=== PATIENT | male | born 1955 ===

== ENCOUNTER 2017-08-13 01:18 | Observation (INO) | payer SELFPAY ==
[2017-08-13] VITALS (10 sets, daily range): BP systolic 92–155; BP diastolic 57–93
[~2017-08-13] VITALS: Ht 167.6 cm; Wt 88.1 kg
[~2017-08-13 01:18] MED LIST: ASP81TEC PO; FINA5TAB PO; GLMP4T PO; HYDR-3720 PO; LISI40TA PO; METF-380 PO; METO25TA2 PO; OMG1KC PO; SITA1TAB6 PO
[2017-08-13] MEDS ORDERED: NS IV 1000 ML 1,000 ML IV ONE (01:23)
[2017-08-13] MEDS ORDERED: ONDANSETRON 4 MG/2 ML (SDV) Z0FRAN IVP ONE (01:30)
[2017-08-13 02:05] LABS: BASOPHILS % (AUTO) 0 % (0-10); EOSINOPHILS % (AUTO) 0 % (0-10); HEMATOCRIT 43 % (40-54); HEMOGLOBIN 14.6 G/DL (13.3-17.7); LYMPHOCYTES # (AUTO) 1.2 X 10^3 (1.0-4.0); LYMPHOCYTES % (AUTO) 23 % (12-44); MEAN CORPUSCULAR HEMOGLOBIN 29 PG (25-34); MEAN CORPUSCULAR HGB CONC 34 G/DL (32-36); MEAN CORPUSCULAR VOLUME 86 FL (80-99); MEAN PLATELET VOLUME 11.3 FL (7.4-10.4); MONOCYTES # (AUTO) 0.4 X 10^3 (0.0-1.0); MONOCYTES % (AUTO) 7 % (0-12); NEUTROPHILS # (AUTO) 3.6 X 10^3 (1.8-7.8); NEUTROPHILS % (AUTO) 69 % (42-75); PLATELET COUNT 166 10^3/uL (130-400); RED BLOOD COUNT 5.03 10^6/uL (4.35-5.85); RED CELL DISTRIBUTION WIDTH 14.7 % (10.0-14.5); WHITE BLOOD COUNT 5.2 10^3/uL (4.3-11.0)
[2017-08-13 02:25] LABS: ALANINE AMINOTRANSFERASE 78 U/L (0-55); ALBUMIN 4.6 GM/DL (3.2-4.5); ALKALINE PHOSPHATASE 85 U/L (40-136); BILIRUBIN,TOTAL 0.4 MG/DL (0.1-1.0); BUN/CREATININE RATIO 11; CALCIUM 8.7 MG/DL (8.5-10.1); CARBON DIOXIDE 20 MMOL/L (21-32); CHLORIDE 101 MMOL/L (98-107); GFR ESTIMATED > 60; GLUCOSE 294 MG/DL (70-105); SODIUM 136 MMOL/L (135-145); TOTAL PROTEIN 7.8 GM/DL (6.4-8.2)
[2017-08-13 03:13] LABS: BILIRUBIN,URINE NEGATIVE (NEGATIVE); CLARITY,URINE CLEAR; COLOR,URINE YELLOW; GLUCOSE, URINE (UA) 4+ (NEGATIVE); KETONES,URINE 1+ (NEGATIVE); LEUKOCYTE ESTERASE ,URINE NEGATIVE (NEGATIVE); NITRITE,URINE NEGATIVE (NEGATIVE); PH,URINE 6.5 (5-9); PROTEIN,URINE 1+ (NEGATIVE); UROBILINOGEN,URINE NORMAL (NORMAL)
[2017-08-13 03:21] LABS: AMPHETAMINE SCREEN, URINE NEGATIVE (NEGATIVE); BARBITURATE SCREEN URINE NEGATIVE (NEGATIVE); BENZODIAZEPINES SCREEN URINE NEGATIVE (NEGATIVE); CANNABINOID SCREEN, URINE NEGATIVE (NEGATIVE); COCAINE SCREEN URINE NEGATIVE (NEGATIVE); METHADONE STAT NEGATIVE (NEGATIVE); METHAMPHETAMINE SCREEN URINE S NEGATIVE (NEGATIVE); OPIATE SCREEN URINE NEGATIVE (NEGATIVE); OXYCODONE STAT NEGATIVE (NEGATIVE); PROPOXYPHENE STAT NEGATIVE (NEGATIVE); TRICYCLIC ANTIDEPRESSANTS SCRE NEGATIVE (NEGATIVE)
[2017-08-13] MEDS ORDERED: TETANUS,DIPTH,PERTUSS P/F (BOOSTRIX) 0.5 ML VIAL IM ONE (03:30)
[2017-08-13 03:33] LABS: BACTERIA,URINE NEGATIVE /HPF; RBC,URINE RARE /HPF; SQUAMOUS EPITHELIAL CELL,UR RARE /HPF
[2017-08-13] MEDS ORDERED: NS IV 1000 ML 1,000 ML ONE (04:33)
--- NOTE | 2017-08-13 04:52 | ED Psychosocial ---
General Chief Complaint: Substance Abuse Stated Complaint: ALCOHOL INTOXICATION,HYPOXIA,FALL SAME LEVEL Nursing Triage Note: PT TO ED 7 PER EMS FOR C/O INTOXICATION. PER EMS, [facility] [place], [facility] WAS ON SCENE AND TOLD PT EITHER GO TO THE HOSPITAL W/ EMS OR GO TO [facility]. PT DECIDED TO COME TO THIS FACILITY PER EMS BUT REFUSED ANY TREATMENT OR INTERVENTIONS PER EMS. PT PRESENTLY WILL NOT ANSWER ANY QUESTIONS ASKED BY STAFF Source: patient, educational sign language interpreter (Via language line) Exam Limitations: language barrier History of Present Illness Date Seen by Provider: Aug 13, 2017 Time Seen by Provider: 01:20 Initial Comments This 62-year-old man is brought to the emergency room via EMS after being found is a parking lot of a local establishment trying to get in the car. Patient would not communicate with EMS. He vomited multiple times. He did agree to go to the emergency room. On arrival he is disoriented and obviously intoxicated smelling heavily of alcohol. He denies any pain or injury but he has abrasions on the right elbow area and the left forearm. EMS reports he vomited multiple times. Patient was refusing interventions by EMS. Allergies and Home Medications Allergies Coded Allergies: Hydrochlorothiazide (Unverified Allergy, Unknown, 04/07/10) Terazosin (Unverified Allergy, Unknown, 04/07/10) Home Medications Aspirin 81 Mg Tabec, 81 MG PO DAILY, (Reported) Finasteride 5 Mg Tablet, 5 MG PO DAILY, (Reported) Glimepiride 4 Mg Tablet, 0.5 TAB PO DAILY, (Reported) Hydrocodone Bit/Acetaminophen 1 Ea Tab, 1-2 EA PO Q4-6HR PRN for PAIN FOR PAIN Prescribed by: PALOMA SERRATO on 06/08/13 2332 Lisinopril 40 Mg Tablet, 40 MG PO DAILY, (Reported) Metformin Hcl 1,000 Mg Tablet, 1 EACH PO BID WITH MEALS, (Reported) Do not take until Apr. 2 blood work results Metoprolol Tartrate 25 Mg Tablet, 25 MG PO BID, (Reported) [place] 3 Polyunsat Fatty Acids 1,000 Mg Cap, 1,000 MG PO BID, (Reported) Sitagliptin Phos/Metformin Hcl 1 Each Tablet, 0.5 EACH PO DAILY, (Reported) Do not resume taking until after apr. 2 blood work results Patient Home Medication List Home Medication List Reviewed: Yes Constitutional: see HPI EENTM: no symptoms reported Respiratory: no symptoms reported Cardiovascular: no symptoms reported Gastrointestinal: see HPI Genitourinary: no symptoms reported Musculoskeletal: no symptoms reported Skin: see HPI, other (abrasions on upper extremities) Psychiatric/Neurological: See HPI Past Idgfavi-Vdlkbf-Zocdir Hx Patient Social History Alcohol Use: Occasionally Uses Recreational Drug Use: No Smoking Status: Never a Smoker Recent Foreign Travel: No Contact w/Someone Who Travel: No Recent Infectious Disease Expo: No Physical Abuse: No Sexual Abuse: No Mistreated: No Fear: No Past Medical History Surgeries: No (denies/some communication barriers) Respiratory: No Cardiac: Yes Hypertension Neurological: No Genitourinary: No Gastrointestinal: No Musculoskeletal: No Endocrine: Yes Diabetes, Non-Insulin dep HEENT: No Cancer: No Psychosocial: No Nursing Suicide Risk Score: 0 Integumentary: No Blood Disorders: No Physical Exam Vital Signs Vital Signs - First Documented 08/13/17 01:19 Temp 95.4 Pulse 87 Resp 16 B/P (MAP) 151/104 (120) Pulse Ox 93 O2 Delivery Room Air Capillary Refill : Less Than 3 Seconds General Appearance: WD/WN, other (Intoxicated) HEENT: PERRL/EOMI, pharynx normal, other (contusion on tip of tongue) Neck: non-tender, supple, normal inspection Respiratory: lungs clear, normal breath sounds, no respiratory distress, no accessory muscle use Cardiovascular: regular rate, rhythm, no edema, no murmur Gastrointestinal: normal bowel sounds, non tender, soft Extremities: normal inspection, no pedal edema 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, no motor/sensory deficits, alert, normal mood/affect, oriented x 3 Appearance/Memory: disheveled, impaired recent memory Behavior/Eye Contact: avoids eye contact, uncooperative Skin: normal color, warm/dry, other (abrasions on right elbow and left forearm) Progress/Results/Core Measures Lab Results Laboratory Tests Test 08/13/17 01:54 08/13/17 03:04 08/13/17 03:47 Range/Units White Blood Count 5.2 4.3-11.0 10^3/uL Red Blood Count 5.03 4.35-5.85 10^6/uL Hemoglobin 14.6 13.3-17.7 G/DL Hematocrit 43 40-54 % Mean Corpuscular Volume 86 80-99 FL Mean Corpuscular Hemoglobin 29 25-34 PG Mean Corpuscular Hemoglobin Concent 34 32-36 G/DL Red Cell Distribution Width 14.7 H 10.0-14.5 % Platelet Count 166 130-400 10^3/uL Mean Platelet Volume 11.3 H 7.4-10.4 FL Neutrophils (%) (Auto) 69 42-75 % Lymphocytes (%) (Auto) 23 12-44 % Monocytes (%) (Auto) 7 0-12 % Eosinophils (%) (Auto) 0 0-10 % Basophils (%) (Auto) 0 0-10 % Neutrophils # (Auto) 3.6 1.8-7.8 X 10^3 Lymphocytes # (Auto) 1.2 1.0-4.0 X 10^3 Monocytes # (Auto) 0.4 0.0-1.0 X 10^3 Eosinophils # (Auto) 0.0 0.0-0.3 10^3/uL Basophils # (Auto) 0.0 0.0-0.1 10^3/uL Sodium Level 136 135-145 MMOL/L Potassium Level 4.0 3.6-5.0 MMOL/L Chloride Level 101 98-107 MMOL/L Carbon Dioxide Level 20 L 21-32 MMOL/L Anion Gap 15 H 5-14 MMOL/L Blood Urea Nitrogen 9 7-18 MG/DL Creatinine 0.80 0.60-1.30 MG/DL Estimat Glomerular Filtration Rate > 60 BUN/Creatinine Ratio 11 Glucose Level 294 H 70-105 MG/DL Calcium Level 8.7 8.5-10.1 MG/DL Magnesium Level 2.0 1.8-2.4 MG/DL Total Bilirubin 0.4 0.1-1.0 MG/DL Aspartate Amino Transf (AST/SGOT) 39 H 5-34 U/L Alanine Aminotransferase (ALT/SGPT) 78 H 0-55 U/L Alkaline Phosphatase 85 40-136 U/L Total Protein 7.8 6.4-8.2 GM/DL Albumin 4.6 H 3.2-4.5 GM/DL Serum Alcohol 255 H <10 MG/DL Urine Color YELLOW Urine Clarity CLEAR Urine pH 6.5 5-9 Urine Specific [place] 1.015 L 1.016-1.022 Urine Protein 1+ H NEGATIVE Urine Glucose (UA) 4+ H NEGATIVE Urine Ketones 1+ H NEGATIVE Urine Nitrite NEGATIVE NEGATIVE Urine Bilirubin NEGATIVE NEGATIVE Urine Urobilinogen NORMAL NORMAL MG/DL Urine Leukocyte Esterase NEGATIVE NEGATIVE Urine RBC (Auto) 1+ H NEGATIVE Urine RBC RARE /HPF Urine WBC NONE /HPF Urine Squamous Epithelial Cells RARE /HPF Urine Crystals NONE /LPF Urine Bacteria NEGATIVE /HPF Urine Casts NONE /LPF Urine Mucus NEGATIVE /LPF Urine Culture Indicated NO Urine Opiates Screen NEGATIVE NEGATIVE Urine Oxycodone Screen NEGATIVE NEGATIVE Urine Methadone Screen NEGATIVE NEGATIVE Urine Propoxyphene Screen NEGATIVE NEGATIVE Urine Barbiturates Screen NEGATIVE NEGATIVE Ur Tricyclic Antidepressants Screen NEGATIVE NEGATIVE Urine Phencyclidine Screen NEGATIVE NEGATIVE Urine Amphetamines Screen NEGATIVE NEGATIVE Urine Methamphetamines Screen NEGATIVE NEGATIVE Urine Benzodiazepines Screen NEGATIVE NEGATIVE Urine Cocaine Screen NEGATIVE NEGATIVE Urine Cannabinoids Screen NEGATIVE NEGATIVE Glucometer 226 H 70-110 MG/DL My Orders Orders - MANI MANZO MD Alcohol (08/13/17 01:23) Cbc With Automated Diff (08/13/17 01:23) Comprehensive Metabolic Panel (08/13/17 01:23) Drug Screen Stat (Urine) (08/13/17 01:23) Magnesium (08/13/17 01:23) Ua Culture If Indicated (08/13/17 01:23) Saline Lock/Iv-Start (08/13/17 01:23) Ns Iv 1000 Ml (Sodium Chloride 0.9%) (08/13/17 01:23) Ondansetron Injection (Zofran Injectio (08/13/17 01:30) Accucheck Stat ONCE (08/13/17 01:26) O2 (08/13/17 01:52) Ct Head/Cervical Spine Wo (08/13/17 01:53) Dipht,Pertuss(Acell),Tet Adult (Boostrix (08/13/17 03:30) Chest 1 View, Ap/Pa Only (08/13/17 03:39) Hand, Left, 3 Views (08/13/17 03:46) Medications Given in ED Current Medications Medications Dose Ordered Sig/Beatrice Route Start Time Stop Time Status Last Admin Dose Admin Diphtheria/ Tetanus/Acell Pertussis 0.5 ml ONCE ONCE IM 08/13/17 03:30 08/13/17 03:31 DC 08/13/17 04:17 0.5 ML Ondansetron HCl 8 mg ONCE ONCE IVP 08/13/17 01:30 08/13/17 01:31 DC 08/13/17 02:04 8 MG Sodium Chloride 1,000 ml @ 0 mls/hr Q0M ONCE IV 08/13/17 01:23 08/13/17 01:27 DC 08/13/17 02:04 1,000 MLS/HR Vital Signs/I&O Vital Sign - Last 12Hours 08/13/17 08/13/17 08/13/17 01:19 04:30 04:32 Temp 95.4 97.6 Pulse 87 101 100 Resp 16 16 B/P (MAP) 151/104 (120) 155/93 (113) Pulse Ox 93 97 O2 Delivery Room Air Room Air Blood Pressure Mean: 113 Finger Stick Blood Glucose: 226 Blood Glucose Action Taken: DR HIRSCH Progress Note : Progress Note Patient initially refused treatment. He vomited a large quantity of emesis. Patient requested to go home but could not contact any family and he eventually became unresponsive. CT of the head and cervical spine was obtained and c- collar was applied. Supplemental oxygen was applied due to hypoxia. Patient was given a liter of IV fluids. Patient repeatedly tore out and removed his c- collar. It was left off eventually due to noncompliance. C-spine was cleared by CT report a short time later. Patient repeatedly removed his nasal cannula and oxygen saturations would drop as low as the 60s when he fell sleep. We had hoped to send the patient home but cannot send him home with hypoxia. I suspect patient has some underlying sleep apnea exacerbated by alcohol intoxication. I suggested admission until he completely clears the alcohol. Dr. Durant agrees to admission. Chest x-ray showed no acute abnormalities. Diagonstic Imaging: CT Plain Films/CT/US/NM/MRI: c-spine, head Comments CT head and cervical spine viewed by me and stat rad report reviewed. No acute injuries identified. Diagonstic Imaging: Xray Plain Films/CT/US/NM/MRI: chest Comments Chest x-ray viewed by me. Report not yet available. Nodular density in the right lower lung. Otherwise no acute abnormalities appreciated. Diagonstic Imaging: Xray Plain Films/CT/US/NM/MRI: hand Comments X-ray of the left hand viewed by me. Report not yet available. No acute abnormalities appreciated. Departure Communication (Admissions) Time/Spoke to Admitting Phy: 03:40 Dr. Durant Time/Spoke to Consulting Phy: 03:50 Dr. Dai Impression Primary Impression: Alcohol intoxication Qualified Codes: F10.920 - Alcohol use, unspecified with intoxication, uncomplicated Additional Impressions: Hypoxia Fall on same level Qualified Codes: W18.30XA - Fall on same level, unspecified, initial encounter Hand contusion Qualified Codes: S60.222A - Contusion of left hand, initial encounter Abrasion Uses Syrian as primary spoken language Disposition: ADMITTED INPATIENT Condition: Improved Admissions Decision to Admit Reason: Admit from ER (General) Decision to Admit/Date: Aug 13, 2017 Time/Decision to Admit Time: 03:40 Departure-Patient Inst. Referrals: NO,LOCAL PHYSICIAN (PCP/Family) Primary Care Physician Patient Instructions: ALCOHOL AND SUBSTANCE ABUSE MANI MANZO MD Aug 13, 2017 04:52
[2017-08-13] MEDS ORDERED: NS IV 1000 ML 1,000 ML IV SCH (05:00)
[2017-08-13] MEDS ORDERED: ONDANSETRON 4 MG/2 ML (SDV) Z0FRAN IV PRN (05:15)
--- NOTE | 2017-08-13 05:49 | Diagnostic Imaging Report ---
INDICATION: Fall COMPARISON: 04/07/2010 FINDINGS: Single frontal view of the chest demonstrates normal heart size and pulmonary vascularity. The lungs show low inspiratory volumes, but are otherwise clear. Calcified granuloma is noted within the right lung base. No large pleural effusion or pneumothorax is seen. The visualized osseous structures show no acute abnormalities. IMPRESSION: 1. No acute cardiopulmonary process. Dictated by: Dictated on workstation # [id number]
--- NOTE | 2017-08-13 05:50 | Diagnostic Imaging Report ---
INDICATION: Fall COMPARISON: None. FINDINGS: 3 views of the left hand show no fractures, dislocations, or other acute bony abnormalities identified. Joint spaces are well maintained throughout. The soft tissues appear unremarkable. No radiopaque foreign bodies are identified. IMPRESSION: No acute fractures or dislocations of the left hand. Dictated by: Dictated on workstation # [id number]
--- NOTE | 2017-08-13 06:33 | Diagnostic Imaging Report ---
PROCEDURE: CT head and CT cervical spine without contrast. TECHNIQUE: Multiple contiguous axial images were obtained through the brain and cervical spine without the use of intravenous contrast. Sagittal and coronal reformations through the cervical spine were then performed. INDICATION: Fall. COMPARISON: None FINDINGS: CT head: Ventricles and cortical sulci are age-appropriate. There is no midline shift or mass-effect. No acute intra-axial hemorrhage is seen. There are no abnormal areas of increased or decreased density to suggest acute hemorrhage or edema. No extra-axial masses or collections are present. The bony calvarium is intact. The visualized paranasal sinuses are unremarkable. The mastoid air cells are clear. CT cervical spine: Evaluation of the static alignment demonstrates slight grade 1 retrolisthesis at the C4-C5 level. Otherwise, static alignment is maintained. There is no evidence of jumped facets. Vertebral body heights are maintained. There is no evidence of acute fracture. No bony fragments are seen within the spinal canal. There are mild multilevel degenerative changes consisting of intervertebral disc height loss with anterior and posterior disc bulges and multilevel facet arthropathy. These changes are also greatest at the C4-C5 level. Pre-and paravertebral soft tissue structures are unremarkable. Included portions of the lung apices are clear. IMPRESSION: 1. No acute intracranial abnormality. No CT evidence of mass, acute infarct or intracranial hemorrhage. 2. No CT evidence of acute fracture or dislocation of the cervical spine. 3. Multilevel degenerative changes of the cervical spine, greatest at C4-C5 level. Dictated by: Dictated on workstation # [id number]
[2017-08-13] MEDS ORDERED: LISI40TA PO (09:24)
[2017-08-13] MEDS ORDERED: OMG1KC PO (09:24)
[2017-08-13] MEDS ORDERED: METO-370 PO (09:54)
[2017-08-13] MEDS ORDERED: LOVA40TA2 PO (09:54)
[2017-08-13] MEDS ORDERED: PIOG30TA38 PO (09:54)
[2017-08-13] MEDS ORDERED: SITA1TAB6 PO (09:54)
[2017-08-13] MEDS ORDERED: CITA20TA12 PO (09:54)
[2017-08-13] MEDS ORDERED: TAMS0.4C98 PO (09:54)
--- NOTE | 2017-08-13 10:26 | Discharge Instructions ---
Discharge Inst-[facility] Discharge Medications Continued Medications: Citalopram Hydrobromide (Celexa) 20 Mg Tablet 40 MG PO DAILY, TAB TAKES 2 (20MG) TABLETS Lisinopril (Lisinopril) 40 Mg Tablet 40 MG PO DAILY, TAB Lovastatin (Lovastatin) 40 Mg Tablet 40 MG PO DAILY, TAB Metoprolol Succinate (Metoprolol Succinate) 50 Mg Tab.er.24h 50 MG PO DAILY, TAB [place] 3 Polyunsat Fatty Acids (Fish Oil 1,000 mg Capsule) 1,000 Mg Cap 1000 MG PO BID, CAP Pioglitazone HCl (Actos) 30 Mg Tablet 30 MG PO DAILY, TAB Sitagliptin Phos/Metformin HCl (Janumet 50-1,000 mg Tablet) 1 Each Tablet 1 TAB PO BID, TAB Tamsulosin HCl (Flomax) 0.4 Mg Cap 0.4 MG PO DAILY, CAP Patient Instructions Goal/Follow Up Appt: ERICA Wade APRN at [facility] 08/19/17 11:40am Activity & Diet Discharge Diet: ADA Diet Orders-Post D/C & Referrals Pneu Vac Indicated: Yes SHIRLEY BROWN DO Aug 13, 2017 10:13
--- NOTE | 2017-08-13 10:27 | Short Stay Summary ---
History of Present Illness History of Present Illness Reason for visit/HPI This is a 62 yo male who was admitted for alcohol intoxication. Pt remembers drinking last night but does not remember coming to the hospital. Apparently he was brought to the hospital after trying to get into a car. He vomited several times. At this time he is alert and oriented. He states he does not have any interest in alcohol treatment. Date of Admission Aug 13, 2017 at 03:51 Date of Discharge August 13, 2017 Time Seen by Provider: 10:10 Attending Physician Deborah Brown DO Admitting Physician Tawny,Local Physician Consult Allergies and Home Medications Allergies Coded Allergies: hydrochlorothiazide (Unverified Allergy, Unknown, 04/07/10) terazosin (Unverified Allergy, Unknown, 04/07/10) Home Medications Citalopram Hydrobromide 20 Mg Tablet, 40 MG PO DAILY, (Reported) TAKES 2 (20MG) TABLETS Lisinopril 40 Mg Tablet, 40 MG PO DAILY, (Reported) Lovastatin 40 Mg Tablet, 40 MG PO DAILY, (Reported) Metoprolol Succinate 50 Mg Tab.er.24h, 50 MG PO DAILY, (Reported) [place] 3 Polyunsat Fatty Acids 1,000 Mg Cap, 1,000 MG PO BID, (Reported) Pioglitazone HCl 30 Mg Tablet, 30 MG PO DAILY, (Reported) Sitagliptin Phos/Metformin HCl 1 Each Tablet, 1 TAB PO BID, (Reported) Tamsulosin HCl 0.4 Mg Cap, 0.4 MG PO DAILY, (Reported) Patient Home Medication List Home Medication List Reviewed: Yes Past Qjpdldi-Anmcgz-[place] Hx Patient Social History Alcohol Use: Occasionally Uses Recreational Drug Use: No Smoking Status: Never a Smoker Physical Abuse Screen: No Sexual Abuse: No Recent Foreign Travel: No Contact w/other who traveled: No Recent Infectious Disease Expo: No Surgeries No (denies/some communication barriers) Respiratory No Cardiovascular Yes Hypertension Neurological No Genitourinary No Gastrointestinal No Musculoskeletal No Endocrine History of Endocrine Disorders: Yes Endocrine Disorders: Diabetes, Non-Insulin dep HEENT History of HEENT Disorders: No Cancer No Psychosocial History of Psychiatric Problem: No Integumentary History of Skin or Integumenta: No Blood Transfusions History of Blood Disorders: No Constitutional: see HPI Physical Exam Vital Signs Vital Signs - First Documented 08/13/17 08/13/17 01:19 02:00 Temp 95.4 Pulse 87 Resp 16 B/P (MAP) 151/104 (120) Pulse Ox 93 O2 Delivery Room Air O2 Flow Rate 2.00 Capillary Refill : Less Than 3 Seconds General Appearance: No Apparent Distress, WD/WN HEENT: PERRL/EOMI Respiratory: Lungs Clear, Normal Breath Sounds Cardiovascular: Regular Rate, Rhythm Neurologic/Psychiatric: Alert, Oriented x3, No Motor/Sensory Deficits, Normal Mood/Affect Skin: Normal Color, Warm/Dry Clinical Quality Measures DVT/VTE Risk/Contraindication: Risk Factor Score Per Nursin RFS Level Per Nursing on Admit: 2=Moderate Short Stay Diagnosis Discharge Diagnosis-Short Stay Admission Diagnosis: 1. Acute alcohol intoxication Final Discharge Diagnosis: 1. Acute alcohol intoxication Conclusion Labs Laboratory Tests 08/13/17 01:54: White Blood Count 5.2, Red Blood Count 5.03, Hemoglobin 14.6, Hematocrit 43, Mean Corpuscular Volume 86, Mean Corpuscular Hemoglobin 29, Mean Corpuscular Hemoglobin Concent 34, Red Cell Distribution Width 14.7H, Platelet Count 166, Mean Platelet Volume 11.3H, Neutrophils (%) (Auto) 69, Lymphocytes (%) (Auto) 23 , Monocytes (%) (Auto) 7, Eosinophils (%) (Auto) 0, Basophils (%) (Auto) 0, Neutrophils # (Auto) 3.6, Lymphocytes # (Auto) 1.2, Monocytes # (Auto) 0.4, Eosinophils # (Auto) 0.0, Basophils # (Auto) 0.0, Sodium Level 136, Potassium Level 4.0, Chloride Level 101, Carbon Dioxide Level 20L, Anion Gap 15H, Blood Urea Nitrogen 9, Creatinine 0.80, Estimat Glomerular Filtration Rate > 60, BUN/ Creatinine Ratio 11, Glucose Level 294H, Calcium Level 8.7, Magnesium Level 2.0 , Total Bilirubin 0.4, Aspartate Amino Transf (AST/SGOT) 39H, Alanine Aminotransferase (ALT/SGPT) 78H, Alkaline Phosphatase 85, Total Protein 7.8, Albumin 4.6H, Serum Alcohol 255H 08/13/17 03:04: Urine Color YELLOW, Urine Clarity CLEAR, Urine pH 6.5, Urine Specific [place] 1.015L, Urine Protein 1+H, Urine Glucose (UA) 4+H, Urine Ketones 1+H, Urine Nitrite NEGATIVE, Urine Bilirubin NEGATIVE, Urine Urobilinogen NORMAL, Urine Leukocyte Esterase NEGATIVE, Urine RBC (Auto) 1+H, Urine RBC RARE, Urine WBC NONE, Urine Squamous Epithelial Cells RARE, Urine Crystals NONE, Urine Bacteria NEGATIVE, Urine Casts NONE, Urine Mucus NEGATIVE, Urine Culture Indicated NO, Urine Opiates Screen NEGATIVE, Urine Oxycodone Screen NEGATIVE, Urine Methadone Screen NEGATIVE, Urine Propoxyphene Screen NEGATIVE, Urine Barbiturates Screen NEGATIVE, Ur Tricyclic Antidepressants Screen NEGATIVE, Urine Phencyclidine Screen NEGATIVE, Urine Amphetamines Screen NEGATIVE, Urine Methamphetamines Screen NEGATIVE, Urine Benzodiazepines Screen NEGATIVE, Urine Cocaine Screen NEGATIVE, Urine Cannabinoids Screen NEGATIVE 08/13/17 03:47: Glucometer 226H Conclusion/Plan Pt is alert and oriented and no longer acutely intoxicated. Pt is not interested in alcohol treatment at this time. Gave patient and his daughter information regarding [facility] program. Patient discharged to home. Discharge Medications Continued Medications: Citalopram Hydrobromide (Celexa) 20 Mg Tablet 40 MG PO DAILY, TAB TAKES 2 (20MG) TABLETS Lisinopril (Lisinopril) 40 Mg Tablet 40 MG PO DAILY, TAB Lovastatin (Lovastatin) 40 Mg Tablet 40 MG PO DAILY, TAB Metoprolol Succinate (Metoprolol Succinate) 50 Mg Tab.er.24h 50 MG PO DAILY, TAB [place] 3 Polyunsat Fatty Acids (Fish Oil 1,000 mg Capsule) 1,000 Mg Cap 1000 MG PO BID, CAP Pioglitazone HCl (Actos) 30 Mg Tablet 30 MG PO DAILY, TAB Sitagliptin Phos/Metformin HCl (Janumet 50-1,000 mg Tablet) 1 Each Tablet 1 TAB PO BID, TAB Tamsulosin HCl (Flomax) 0.4 Mg Cap 0.4 MG PO DAILY, CAP Patient Instructions Goal/Follow Up Appt: ERICA Wade APRN at [facility] 08/19/17 11:40am DEBORAH BROWN DO Aug 13, 2017 10:27
== END 2017-08-13 10:12 | disposition home or self-care (01) ==
LOC: EDUNIT# 01:18 → ER 01:20 → ICU 03:51 → UNDOADMOB 03:51 → ICU 04:30 → UNDODISOB 10:45
PROVIDERS: ADMIT Family Medicine; ATTEND Family Medicine
DX: F10.129 Alcohol abuse with intoxication, unspecified (principal); R09.02 Hypoxemia; S50.311A Abrasion of right elbow, initial encounter; S50.812A Abrasion of left forearm, initial encounter; I10 Essential (primary) hypertension; E11.9 Type 2 diabetes mellitus without complications; W18.30XA Fall on same level, unspecified, initial encounter; Y92.481 Parking lot as the place of occurrence of the external cause; Z79.82 Long term (current) use of aspirin; Z79.84 Long term (current) use of oral hypoglycemic drugs; Z79.899 Other long term (current) drug therapy; Z23 Encounter for immunization
CPT/HCPCS: 36415; 70450; 71045; 72125; 73130; 80053; 80306; 80320; 81000; 82962; 83735; 85025; 87081; 90471; 90715; 96361; 96374; G0378

== ENCOUNTER 2019-01-17 07:11 | Emergency (ER) | payer SELFPAY ==
[~2019-01-17] VITALS: Ht 66 cm; Wt 86.8 kg
[~2019-01-17 07:11] MED LIST changes: +CITA20TA12 PO; +LOVA40TA2 PO; +METO-370 PO; +PIOG30TA38 PO; +TAMS0.4C98 PO
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
[2019-01-17] MEDS ORDERED: fentaNYL INJECTION 100 MCG/2 ML AMP IVP ONE (08:45)
[2019-01-17 08:49] LABS: BASOPHILS % (AUTO) 0 % (0-10); EOSINOPHILS # (AUTO) 0.1 10^3/uL (0.0-0.3); EOSINOPHILS % (AUTO) 2 % (0-10); HEMATOCRIT 39 % (40-54); HEMOGLOBIN 12.8 G/DL (13.3-17.7); LYMPHOCYTES # (AUTO) 1.3 X 10^3 (1.0-4.0); LYMPHOCYTES % (AUTO) 33 % (12-44); MEAN CORPUSCULAR HEMOGLOBIN 29 PG (25-34); MEAN CORPUSCULAR HGB CONC 33 G/DL (32-36); MEAN CORPUSCULAR VOLUME 89 FL (80-99); MEAN PLATELET VOLUME 11.2 FL (7.4-10.4); MONOCYTES # (AUTO) 0.6 X 10^3 (0.0-1.0); MONOCYTES % (AUTO) 14 % (0-12); NEUTROPHILS % (AUTO) 51 % (42-75); PLATELET COUNT 164 10^3/uL (130-400); RED CELL DISTRIBUTION WIDTH 13.8 % (10.0-14.5); WHITE BLOOD COUNT 3.9 10^3/uL (4.3-11.0)
[2019-01-17 09:07] LABS: ALANINE AMINOTRANSFERASE 129 U/L (0-55); ALBUMIN 3.9 GM/DL (3.2-4.5); ALKALINE PHOSPHATASE 95 U/L (40-136); BILIRUBIN,TOTAL 0.7 MG/DL (0.1-1.0); BUN/CREATININE RATIO 11; CALCIUM 8.7 MG/DL (8.5-10.1); CARBON DIOXIDE 22 MMOL/L (21-32); CHLORIDE 106 MMOL/L (98-107); CREATININE SERUM 0.85 MG/DL (0.60-1.30); GFR ESTIMATED > 60; GLUCOSE 221 MG/DL (70-105); SODIUM 135 MMOL/L (135-145); TOTAL PROTEIN 6.8 GM/DL (6.4-8.2)
[2019-01-17] MEDS ORDERED: HOLD METFORMIN - RECEIVED CONTRAST 20 ML VIAL IV SCH (09:15)
[2019-01-17] MEDS ORDERED: IOHEXOL 350 MG/ML 100 ML (OMNIPAQUE 350) VIAL IV ONE (09:15)
[2019-01-17] MEDS ORDERED: NS 100 ML (IVPB) BAG IV ONE (09:15)
[2019-01-17] MEDS ORDERED: TETANUS,DIPTH,PERTUSS P/F (BOOSTRIX) 0.5 ML VIAL IM ONE (09:30)
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
[2019-01-17 12:37] VITALS: BP 146/97
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
== END 2019-01-17 12:36 | disposition home or self-care (01) ==
LOC: EDUNIT# 07:11 → ER 07:12
DX: S00.83XA Contusion of other part of head, initial encounter (principal); S06.0X9A Concussion with loss of consciousness of unspecified duration, initial encounter; S10.93XA Contusion of unspecified part of neck, initial encounter; S40.011A Contusion of right shoulder, initial encounter; S50.02XA Contusion of left elbow, initial encounter; S60.212A Contusion of left wrist, initial encounter; S62.102A Fracture of unspecified carpal bone, left wrist, initial encounter for closed fracture; I10 Essential (primary) hypertension; E11.9 Type 2 diabetes mellitus without complications; Z88.8 Allergy status to other drugs, medicaments and biological substances; Z79.84 Long term (current) use of oral hypoglycemic drugs; Y04.0XXA Assault by unarmed brawl or fight, initial encounter
CPT/HCPCS: 36415; 70450; 70486; 70491; 72125; 73080; 73110; 80053; 80320; 85025; 90715

== ENCOUNTER 2019-03-08 14:01 | Emergency (ER) | payer SELFPAY ==
[~2019-03-08] VITALS: Ht 167 cm; Wt 90.0 kg
[2019-03-08] MEDS ORDERED: ASPIRIN 81 MG CHEW (CHILDREN'S ASA) PO ONE (14:15)
[2019-03-08 14:20] LABS: BASOPHILS % (AUTO) 0 % (0-10); EOSINOPHILS # (AUTO) 0.1 10^3/uL (0.0-0.3); EOSINOPHILS % (AUTO) 1 % (0-10); HEMATOCRIT 42 % (40-54); LYMPHOCYTES # (AUTO) 1.2 X 10^3 (1.0-4.0); LYMPHOCYTES % (AUTO) 27 % (12-44); MEAN CORPUSCULAR HEMOGLOBIN 29 PG (25-34); MEAN CORPUSCULAR HGB CONC 33 G/DL (32-36); MEAN CORPUSCULAR VOLUME 87 FL (80-99); MEAN PLATELET VOLUME 11.1 FL (7.4-10.4); MONOCYTES # (AUTO) 0.5 X 10^3 (0.0-1.0); MONOCYTES % (AUTO) 11 % (0-12); NEUTROPHILS # (AUTO) 2.8 X 10^3 (1.8-7.8); NEUTROPHILS % (AUTO) 61 % (42-75); PLATELET COUNT 180 10^3/uL (130-400); RED CELL DISTRIBUTION WIDTH 13.7 % (10.0-14.5); WHITE BLOOD COUNT 4.6 10^3/uL (4.3-11.0)
[2019-03-08 14:32] LABS: PROTHROMBIN TIME PATIENT 13.3 SEC (12.2-14.7)
--- NOTE | 2019-03-08 14:33 | ED Cardiac General ---
History of Present Illness General Chief Complaint: Chest Pain Stated Complaint: SOA Nursing Triage Note: PT STATES SOB YESTERDAY WHILE SHOPPING, ALMOST PASSED OUT. THIS MORNING PT WAS SOB AND ARMS WERE HURTING WITH WEAKNESS IN THE LEGS. Source: patient, family, color worker Exam Limitations: language barrier History of Present Illness Date Seen by Provider: Mar 08, 2019 Time Seen by Provider: 14:00 Initial Comments 63-year-old male patient presents with bilateral lower extremity weakness and bilateral upper extremity weakness worse in the morning along along with dizziness with intermittent sternal chest pain starting yesterday patient reports the pain is worse with exertion and is nonexistent with rest. Patient reports having a history of hypertension and cholesterol both of which he is taking medication for and has not missed any doses. On 81 mg of aspirin twice daily. Patient denies nausea, vomiting or shortness of breath. Reports he is diabetic for which she takes metformin for. He checked his glucose level when he was dizzy and it was 200. 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: Yes (81 mg this morning) Associated Systoms: Weakness Allergies and Home Medications Allergies Coded Allergies: hydrochlorothiazide (Unverified Allergy, Unknown, 04/07/10) terazosin (Unverified Allergy, Unknown, 04/07/10) Home Medications Citalopram Hydrobromide 20 Mg Tablet, 40 MG PO DAILY, (Reported) TAKES 2 (20MG) TABLETS Lisinopril 40 Mg Tablet, 40 MG PO DAILY, (Reported) Lovastatin 40 Mg Tablet, 40 MG PO DAILY, (Reported) Metoprolol Succinate 50 Mg Tab.er.24h, 50 MG PO DAILY, (Reported) [place] 3 Polyunsat Fatty Acids 1,000 Mg Cap, 1,000 MG PO BID, (Reported) Pioglitazone HCl 30 Mg Tablet, 30 MG PO DAILY, (Reported) Sitagliptin Phos/Metformin HCl 1 Each Tablet, 1 TAB PO BID, (Reported) Sulfamethoxazole/Trimethoprim 1 Each Tablet, 1 EACH PO BID Prescribed by: JADEN LAROSE on 03/08/19 0638 Tamsulosin HCl 0.4 Mg Cap, 0.4 MG PO DAILY, (Reported) Patient Home Medication List Home Medication List Reviewed: Yes Review of Systems Review of Systems Constitutional: no symptoms reported, see HPI EENTM: No Symptoms Reported, See HPI Respiratory: No Symptoms Reported, See HPI Cardiovascular: Chest Pain Gastrointestinal: No Symptoms Reported, See HPI Genitourinary: No Symptoms Reported, See HPI Musculoskeletal: muscle weakness Skin: no symptoms reported, see HPI Psychiatric/Neurological: No Symptoms Reported, See HPI Endocrine: No Symptoms Reported, See HPI Hematologic/Lymphatic: No Symptoms Reported, See HPI All Other Systems Reviewed Negative Unless Noted: Yes Past Vlcgogn-Qvfphy-Snjqfe Hx Past Med/Social Hx: Reviewed Nursing Past Med/Soc Hx Patient Social History Alcohol Beverage of Choice: Beer Recent Foreign Travel: No Contact w/Someone Who Travel: No Recent Infectious Disease Expo: No Past Medical History Surgeries: Yes (teeth) Respiratory: No Cardiac: Yes Hypertension Neurological: No Genitourinary: No Gastrointestinal: No Musculoskeletal: No Endocrine: Yes Diabetes, Non-Insulin dep HEENT: No Cancer: No Psychosocial: No Integumentary: No Blood Disorders: No Physical Exam Vital Signs Vital Signs - First Documented 03/08/19 14:13 Temp 35.8 Pulse 81 Resp 20 B/P (MAP) 109/81 (90) Pulse Ox 97 O2 Delivery Room Air Capillary Refill : Less Than 3 Seconds Height, Weight, BMI Height: 5'6.00" Weight: 194lbs. 5.0oz. [id number]; 32.00 BMI Method:Estimated General Appearance: No Apparent Distress, WD/WN HEENT: PERRL/EOMI, TMs Normal Neck: Full Range of Motion, Normal Inspection, Non Tender Respiratory: Chest Non Tender, Lungs Clear, Normal Breath Sounds, No Accessory Muscle Use, No Respiratory Distress Cardiovascular: Regular Rate, Rhythm, No Edema, No Gallop, No JVD, No Murmur, Normal Peripheral Pulses Gastrointestinal: Normal Bowel Sounds, Non Tender, Soft Rectal: Deferred Extremity: Normal Capillary Refill, Normal Inspection, Normal Range of Motion, Non Tender, No Calf Tenderness Neurologic/Psychiatric: Alert, Oriented x3, No Motor/Sensory Deficits, Normal Mood/Affect Skin: Normal Color, Warm/Dry Progress/Results/Core Measures Results/Orders Lab Results Laboratory Tests Test 03/08/19 14:10 03/08/19 16:00 Range/Units White Blood Count 4.6 4.3-11.0 10^3/uL Red Blood Count 4.83 4.35-5.85 10^6/uL Hemoglobin 14.0 13.3-17.7 G/DL Hematocrit 42 40-54 % Mean Corpuscular Volume 87 80-99 FL Mean Corpuscular Hemoglobin 29 25-34 PG Mean Corpuscular Hemoglobin Concent 33 32-36 G/DL Red Cell Distribution Width 13.7 10.0-14.5 % Platelet Count 180 130-400 10^3/uL Mean Platelet Volume 11.1 H 7.4-10.4 FL Neutrophils (%) (Auto) 61 42-75 % Lymphocytes (%) (Auto) 27 12-44 % Monocytes (%) (Auto) 11 0-12 % Eosinophils (%) (Auto) 1 0-10 % Basophils (%) (Auto) 0 0-10 % Neutrophils # (Auto) 2.8 1.8-7.8 X 10^3 Lymphocytes # (Auto) 1.2 1.0-4.0 X 10^3 Monocytes # (Auto) 0.5 0.0-1.0 X 10^3 Eosinophils # (Auto) 0.1 0.0-0.3 10^3/uL Basophils # (Auto) 0.0 0.0-0.1 10^3/uL Prothrombin Time 13.3 12.2-14.7 SEC INR Comment 1.0 0.8-1.4 Activated Partial Thromboplast Time 27 24-35 SEC Sodium Level 133 L 135-145 MMOL/L Potassium Level 4.4 3.6-5.0 MMOL/L Chloride Level 101 98-107 MMOL/L Carbon Dioxide Level 22 21-32 MMOL/L Anion Gap 10 5-14 MMOL/L Blood Urea Nitrogen 20 H 7-18 MG/DL Creatinine 1.16 0.60-1.30 MG/DL Estimat Glomerular Filtration Rate > 60 BUN/Creatinine Ratio 17 Glucose Level 278 H 70-105 MG/DL Calcium Level 9.1 8.5-10.1 MG/DL Corrected Calcium 9.1 8.5-10.1 MG/DL Magnesium Level 1.6 1.6-2.4 MG/DL Total Bilirubin 0.6 0.1-1.0 MG/DL Aspartate Amino Transf (AST/SGOT) 65 H 5-34 U/L Alanine Aminotransferase (ALT/SGPT) 102 H 0-55 U/L Alkaline Phosphatase 99 40-136 U/L Myoglobin 52.5 10.0-92.0 NG/ML Troponin I < 0.028 <0.028 NG/ML B-Type Natriuretic Peptide 236.5 H <100.0 PG/ML Total Protein 7.2 6.4-8.2 GM/DL Albumin 4.0 3.2-4.5 GM/DL Urine Color YELLOW Urine Clarity CLEAR Urine pH 5 5-9 Urine Specific [place] 1.020 1.016-1.022 Urine Protein 1+ H NEGATIVE Urine Glucose (UA) 4+ H NEGATIVE Urine Ketones NEGATIVE NEGATIVE Urine Nitrite NEGATIVE NEGATIVE Urine Bilirubin NEGATIVE NEGATIVE Urine Urobilinogen NORMAL NORMAL MG/DL Urine Leukocyte Esterase 1+ H NEGATIVE Urine RBC (Auto) 1+ H NEGATIVE Urine RBC 2-5 H /HPF Urine WBC 2-5 /HPF Urine Crystals NONE /LPF Urine Bacteria TRACE /HPF Urine Casts NONE /LPF Urine Mucus SMALL H /LPF Urine Culture Indicated YES My Orders Orders - JADEN LAROSE Cbc With Automated Diff (03/08/19 14:07) Magnesium (03/08/19 14:07) Chest 1 View, Ap/Pa Only (03/08/19 14:07) Ekg Tracing (03/08/19 14:07) Cardiac Profile 1 (03/08/19 14:07) Comprehensive Metabolic Panel (03/08/19 14:07) Myoglobin Serum (03/08/19 14:07) Protime With Inr (03/08/19 14:07) Partial Thromboplastin Time (03/08/19 14:07) O2 (03/08/19 14:07) Monitor-Rhythm Ecg Trace Only (03/08/19 14:07) Ed Iv/Invasive Line Start (03/08/19 14:07) BNP (03/08/19 14:07) Aspirin Chewable Tablet (Baby Aspirin Ch (03/08/19 14:15) Ns Iv 1000 Ml (Sodium Chloride 0.9%) (03/08/19 15:45) Ua Culture If Indicated (03/08/19 15:35) Orthostatic Vital Signs (Adult (03/08/19 15:36) Urine Culture (03/08/19 16:00) Medications Given in ED Current Medications Medications Dose Ordered Sig/Beatrice Route Start Time Stop Time Status Last Admin Dose Admin Aspirin 324 mg ONCE ONCE PO 03/08/19 14:15 03/08/19 14:16 DC 03/08/19 14:33 324 MG Vital Signs/I&O 03/08/19 03/08/19 03/08/19 03/08/19 14:13 14:30 14:33 15:59 Temp 35.8 35.8 Pulse 81 76 85 87 Resp 20 B/P (MAP) 109/81 (90) 109/76 (87) 101/76 (84) 117/79 (92) Pulse Ox 97 O2 Delivery Room Air Room Air 03/08/19 16:55 Temp 35.8 Pulse 87 Resp 20 B/P (MAP) 114/72 (92) Pulse Ox 97 O2 Delivery Room Air Blood Pressure Mean: 90 POS Progress Progress Note : Time: 14:00 Progress Note Patient seen and evaluated. We'll get labs and reevaluate. 1430 IV, normal saline 1 L. 1515 patient reports be feeling better. All labs essentially normal. Awaiting UA. 1615 patient provided UA. 1645 discharge instructions and return precautions reviewed with the patient. All questions answered Initial ECG Impression Date: Mar 08, 2019 Initial ECG Impression Time: 14:10 Initial ECG Rate: 84 Initial ECG Rhythm: Normal Sinus Initial ECG Impression: Normal Comment EKG reviewed by me weight is 84 sinus rhythm MN 156 QRSD 90 QT 356 [place] P 32 QRS 12 T 48 Diagnostic Imaging Diagonstic Imaging: Xray Plain Films/CT/US/NM/MRI: chest Comments NAME: TERA REINA [facility] REC#: [id number] PT STATUS: REG ER : 1955 PHYSICIAN: JADEN LAROSEP ADMIT DATE: 03/08/19/ER Draft POSDate of Exam:03/08/19 CHEST 1 VIEW, AP/PA ONLY INDICATION: Shortness of air. TIME OF EXAM: 02:43 p.m. COMPARISON: Comparison is made with prior chest from 08/13/2017. FINDINGS: Calcified nodule in right midlung is noted consistent with a granuloma. This is noted on prior chest radiograph which projects more inferior due to diminished lung volumes. No infiltrates are seen. The pulmonary vascularity is normal. The heart size is stable. There is no effusion or pneumothorax. IMPRESSION: No acute cardiopulmonary processes detected. Dictated on workstation # [id number] Dict: 03/08/19 1459 Trans: 03/08/19 1502 [facility] [phone] Interpreted by: CHANCE STEARNS MD Electronically signed by: Reviewed: Reviewed by Me (and reviewed radiologist report) Departure Impression Primary Impression: UTI (urinary tract infection) Qualified Codes: N30.01 - Acute cystitis with hematuria Disposition: HOME, SELF-CARE Condition: Improved Departure-Patient Inst. Decision time for Depature: 16:45 Referrals: NO,LOCAL PHYSICIAN (PCP/Family) Primary Care Physician Patient Instructions: Urinary Tract Infection, Adult (DC) Add. Discharge Instructions: Increase water intake, 16 ounces every 2-3 hours when awake. Empty bladder every 2 hours while awake. Drink 1 glass of cranberry juice or eat 1 cup of fresh blueberries daily. Take antibiotics as prescribed. Follow-up with Gato Patel APRN in 2-3 days if symptoms are not improving or worsen. You May alternate between Tylenol 650 mg and ibuprofen 600 mg every 4 hours for pain or fever. Return to emergency department for new, urgent health care needs. All discharge instructions reviewed with patient and/or family. Voiced understanding. Scripts Sulfamethoxazole/Trimethoprim (Sulfamethoxazole-Tmp Ds Tablet) 1 Each Tablet 1 EACH PO BID, #14 TAB 0 Refills Prov: JADEN LAROSE 03/08/19 JADEN LAROSE Mar 08, 2019 14:33 POS
[2019-03-08 14:39] LABS: ALANINE AMINOTRANSFERASE 102 U/L (0-55); ALKALINE PHOSPHATASE 99 U/L (40-136); BILIRUBIN,TOTAL 0.6 MG/DL (0.1-1.0); BUN/CREATININE RATIO 17; CALCIUM 9.1 MG/DL (8.5-10.1); CARBON DIOXIDE 22 MMOL/L (21-32); CHLORIDE 101 MMOL/L (98-107); CREATININE SERUM 1.16 MG/DL (0.60-1.30); GFR ESTIMATED > 60; GLUCOSE 278 MG/DL (70-105); MAGNESIUM 1.6 MG/DL (1.6-2.4); POTASSIUM 4.4 MMOL/L (3.6-5.0); SODIUM 133 MMOL/L (135-145); TOTAL PROTEIN 7.2 GM/DL (6.4-8.2)
--- NOTE | 2019-03-08 15:02 | Diagnostic Imaging Report ---
INDICATION: Shortness of air. TIME OF EXAM: 02:43 p.m. COMPARISON: Comparison is made with prior chest from 08/13/2017. FINDINGS: Calcified nodule in right midlung is noted consistent with a granuloma. This is noted on prior chest radiograph which projects more inferior due to diminished lung volumes. No infiltrates are seen. The pulmonary vascularity is normal. The heart size is stable. There is no effusion or pneumothorax. IMPRESSION: No acute cardiopulmonary processes detected. Dictated by: Dictated on workstation # [id number]
[2019-03-08] MEDS ORDERED: NS IV 1000 ML 1,000 ML IV SCH (15:45)
[2019-03-08 15:59] VITALS: BP_SYST 101; BP_SYST 109; BP_SYST 117; BP_DIAS 76; BP_DIAS 79
[2019-03-08 16:22] LABS: BACTERIA,URINE TRACE /HPF; BILIRUBIN,URINE NEGATIVE (NEGATIVE); CLARITY,URINE CLEAR; COLOR,URINE YELLOW; GLUCOSE, URINE (UA) 4+ (NEGATIVE); KETONES,URINE NEGATIVE (NEGATIVE); LEUKOCYTE ESTERASE ,URINE 1+ (NEGATIVE); NITRITE,URINE NEGATIVE (NEGATIVE); PH,URINE 5 (5-9); PROTEIN,URINE 1+ (NEGATIVE)
[2019-03-08] MEDS ORDERED: SULF-222 PO (16:51)
[2019-03-08 16:55] VITALS: BP 114/72
== END 2019-03-08 16:55 | disposition home or self-care (01) ==
LOC: EDUNIT# 14:01 → ER 14:01
DX: N39.0 Urinary tract infection, site not specified (principal); I10 Essential (primary) hypertension; E78.00 Pure hypercholesterolemia, unspecified; E11.9 Type 2 diabetes mellitus without complications; Z79.84 Long term (current) use of oral hypoglycemic drugs; Z88.8 Allergy status to other drugs, medicaments and biological substances
CPT/HCPCS: 36415; 71045; 80053; 81000; 83735; 83874; 83880; 84484; 85025; 85610; 85730; 87088; 93005; 93041; 96360

== ENCOUNTER 2020-01-30 19:06 | Emergency (ER) | payer SELFPAY ==
[~2020-01-30] VITALS: Ht 167.7 cm; Wt 87.9 kg
[~2020-01-30 19:06] MED LIST changes: -METO-370 PO; +METO50TA7 PO; +SULF-222 PO; -TAMS0.4C98 PO; +TMSL.4C PO
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
--- NOTE | 2020-01-30 20:50 | NUR ---
Hard C-Collar applied, pt supine.
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
[2020-01-30] MEDS ORDERED: HOLD METFORMIN - RECEIVED CONTRAST 20 ML VIAL IV SCH (21:00)
[2020-01-30] MEDS ORDERED: NS 100 ML (IVPB) BAG IV ONE (21:00)
[2020-01-30] MEDS ORDERED: IOHEXOL 350 MG/ML 100 ML (OMNIPAQUE 350) VIAL IV ONE (21:00)
[2020-01-30 21:03] LABS: BASOPHILS % (AUTO) 0 % (0-10); EOSINOPHILS # (AUTO) 0.1 10^3/uL (0.0-0.3); EOSINOPHILS % (AUTO) 2 % (0-10); HEMATOCRIT 36 % (40-54); HEMOGLOBIN 11.8 g/dL (13.3-17.7); LYMPHOCYTES % (AUTO) 23 % (12-44); MEAN CORPUSCULAR HEMOGLOBIN 29 pg (25-34); MEAN CORPUSCULAR HGB CONC 33 g/dL (32-36); MEAN CORPUSCULAR VOLUME 87 fL (80-99); MONOCYTES # (AUTO) 0.6 10^3/uL (0.0-1.0); MONOCYTES % (AUTO) 13 % (0-12); NEUTROPHILS # (AUTO) 2.8 10^3/uL (1.8-7.8); NEUTROPHILS % (AUTO) 62 % (42-75); PLATELET COUNT 165 10^3/uL (130-400); WHITE BLOOD COUNT 4.6 10^3/uL (4.3-11.0)
[2020-01-30 21:11] LABS: ALBUMIN 3.8 GM/DL (3.2-4.5)
[2020-01-30 21:12] LABS: CHLORIDE 105 MMOL/L (98-107); POTASSIUM 3.6 MMOL/L (3.6-5.0); SODIUM 138 MMOL/L (135-145)
[2020-01-30 21:13] LABS: CALCIUM 8.5 MG/DL (8.5-10.1)
[2020-01-30 21:14] LABS: GLUCOSE 275 MG/DL (70-105); TOTAL PROTEIN 6.9 GM/DL (6.4-8.2)
[2020-01-30 21:15] VITALS: BP 174/107
[2020-01-30 21:15] LABS: CARBON DIOXIDE 23 MMOL/L (21-32)
[2020-01-30 21:16] LABS: BILIRUBIN,TOTAL 0.5 MG/DL (0.1-1.0)
[2020-01-30 21:17] LABS: ALKALINE PHOSPHATASE 75 U/L (40-136)
[2020-01-30 21:18] LABS: CREATININE SERUM 0.85 MG/DL (0.60-1.30); GFR ESTIMATED > 60
[2020-01-30 21:19] LABS: BUN/CREATININE RATIO 16
[2020-01-30 21:21] LABS: ALANINE AMINOTRANSFERASE 143 U/L (0-55)
[2020-01-30 22:29] LABS: BILIRUBIN,URINE NEGATIVE (NEGATIVE); CLARITY,URINE CLEAR; COLOR,URINE YELLOW; GLUCOSE, URINE (UA) 3+ (NEGATIVE); KETONES,URINE NEGATIVE (NEGATIVE); LEUKOCYTE ESTERASE ,URINE NEGATIVE (NEGATIVE); NITRITE,URINE NEGATIVE (NEGATIVE); PROTEIN,URINE NEGATIVE (NEGATIVE)
[2020-01-30 22:41] LABS: BACTERIA,URINE TRACE /HPF; SQUAMOUS EPITHELIAL CELL,UR RARE /HPF; WBC,URINE 0-2 /HPF
[2020-01-31] MEDS ORDERED: fentaNYL INJECTION 100 MCG/2 ML AMP IVP ONE (00:30)
[2020-01-31 00:59] VITALS: BP 166/105
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
== END 2020-01-31 01:24 | disposition short-term general hospital (02) ==
LOC: EDUNIT# 19:06 → ER 19:08
DX: S12.200A Unspecified displaced fracture of third cervical vertebra, initial encounter for closed fracture (principal); S32.029A Unspecified fracture of second lumbar vertebra, initial encounter for closed fracture; S22.31XA Fracture of one rib, right side, initial encounter for closed fracture; N13.2 Hydronephrosis with renal and ureteral calculous obstruction; I10 Essential (primary) hypertension; E11.9 Type 2 diabetes mellitus without complications; E78.00 Pure hypercholesterolemia, unspecified; Z87.891 Personal history of nicotine dependence; Z88.8 Allergy status to other drugs, medicaments and biological substances; Z79.84 Long term (current) use of oral hypoglycemic drugs; V49.40XA Driver injured in collision with unspecified motor vehicles in traffic accident, initial encounter
CPT/HCPCS: 36415; 70450; 70496; 70498; 71100; 71260; 72125; 72131; 74177; 80053; 81000; 85025

== ENCOUNTER 2021-03-20 02:22 | Emergency (ER) | payer SELFPAY ==
[~2021-03-20 02:22] MED LIST changes: +LISI40TA9 PO
--- OUTSIDE RECORDS SUMMARY | 2021-03-20 02:28 | XMS REPORT | Clinical Summary ---
Author Author [facility] Organization [facility] Address Unknown Phone Unavailable Care Team Providers Care Utilization Review Rn Name Role Phone PCP Unavailable Source Comments Some departments are not documenting in the electronic medical record. If you d o not see the information that you expected, contact Release of Information in [facility] [employer] Information Management department at [phone] for further assistan ce in locating additional records.[facility] Allergies No known active allergies Medications End Date Status Medication Sig Dispensed Refills Start Date Active lovastatin(+) (MEVACOR) Take 1 Tab by 0 40 mg tablet mouth daily. 6 Active Problems No known active problems Medical History Medical History Date Comments DM (diabetes mellitus) (HCC) Obesity (BMI 30-39.9) Social History Date Tobacco Use Types Packs/Day Years Used Never Smoker Smokeless Tobacco: Never Used Comments Alcohol Use Standard Drinks/Week Not Asked 0 (1 standard drink = 0.6 o z pure alcohol) Sex Assigned at Date Recorded Not on file Last Filed Vital Signs Reading Time Taken Comments Vital Sign 142/86 03/24/2016 2:34 PM [employer] Blood Pressure 73 03/24/2016 2:34 PM [employer] Pulse - - Temperature - - Respiratory Rate - - Oxygen Saturation - - Inhaled Oxygen Concentration 90.9 kg (200 lb 6.4 oz) 03/24/2016 2:34 PM [employer] Weight 167.6 cm (5' 6") 03/24/2016 2:34 PM [employer] Height 32.35 03/24/2016 2:34 PM [employer] Body Mass Index Plan of Treatment Health Maintenance Due Date Last Done Comments HIV SCREENING 1971 DTAP/TDAP VACCINES (1 - 1974 Tdap) HEPATITIS C SCREENING 1974 PHYSICAL (COMPREHENSIVE) 1974 EXAM COLORECTAL CANCER 2006 SCREENING SHINGLES RECOMBINANT 2006 VACCINE (1 of 2) INFLUENZA VACCINE 12/08/2020 Results Not on filefrom Last 3 Months
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
== END 2021-03-20 02:45 | disposition home or self-care (01) ==
LOC: EDUNIT# 02:22 → ER 02:25
DX: F10.10 Alcohol abuse, uncomplicated (principal); I10 Essential (primary) hypertension; E11.9 Type 2 diabetes mellitus without complications
CPT/HCPCS: 99281

== ENCOUNTER 2022-02-03 06:14 | Day surgery (SDC) | payer MEDICARE ==
[~2022-02-03] VITALS: Ht 167 cm; Wt 78.0 kg
[2022-02-03] VITALS (10 sets, daily range): BP systolic 82–148; BP diastolic 50–99
[2022-02-03] MEDS ORDERED: cefTRIAXone 1 GM PRE-MIX 50 ML IV ONE ×2 (07:08→11:00)
[2022-02-03] MEDS ORDERED: MIDAZOLAM 2 MG/2 ML (VERSED) VIAL ONE (07:10)
[2022-02-03] MEDS ORDERED: ONDANSETRON 4 MG/2 ML (SDV) Z0FRAN ONE (07:10)
[2022-02-03] MEDS ORDERED: ROCURONIUM 10 MG/ML 5 ML SYRINGE IV ONE (07:10)
[2022-02-03] MEDS ORDERED: SEVOFLURANE (ULTANE) 15 ML INHAL SOLN ONE ×2 (07:10→08:03)
[2022-02-03] MEDS ORDERED: fentaNYL INJ 100 MCG/2 ML AMP ONE (07:10)
[2022-02-03] MEDS ORDERED: proPOfol 200 MG/20 ML (DIPRIVAN) VIAL IV ONE (07:10)
[2022-02-03] MEDS ORDERED: LIDOCAINE PF 2% 5 ML (XYLOCAINE) VIAL ONE (07:10)
--- NOTE | 2022-02-03 07:11 | Progress Note-Pre Operative ---
Pre-Operative Progress Note Date of Available H&P: Feb 03, 2022 Date H&P Reviewed: Feb 03, 2022 Time H&P Reviewed: 07:11 Changes from last HP NONE Pre-Operative Diagnosis: RT PROXIMAL URETERAL STONE HARLEEN FUENTES MD Feb 03, 2022 07:11
--- NOTE | 2022-02-03 07:14 | Progress Note-Post Operative ---
Post-Operative Progess Note Surgeon (s)/Hole Digger (s) Surgeon HARLEEN FUENTES MD Hole Digger: NONE Pre-Operative Diagnosis RT PROXIMAL URETERAL STONE Post-Operative Diagnosis SAME Procedure & Operative Findings Date of Procedure 02/03/22 Procedure Performed/Findings CYSTOSCOPY, RT URETERAL STONE MANIPULATION AND ATTEMPTED STENT WITH RETROGRADE UROGRAM Anesthesia Type GENERAL Estimated Blood Loss Estimated blood loss (mL): NONE Specimens/Packing Specimens Removed NONE Packing: NONE HARLEEN FUENTES MD Feb 03, 2022 07:14
[2022-02-03] MEDS: LACTATED RINGERS 1,000 ML IV SCH ×2 (07:15→08:34)
--- NOTE | 2022-02-03 07:16 | Discharge Inst-Urology ---
Discharge Inst-Urology Reconcile Patient Problems Problems Reviewed?: Yes Final Diagnosis RT URETERAL STONE Patient Instructions/Follow Up Plan/Assessment/Instructions Please make appointment to been seen in office Friday 02/23. Office will also try to refer to [facility] prior to appointment If pain or problem prior to 02/23, go to ED [facility], patient and know I will be gone first 2 weeks in February Stay off ASA Increase oral fluids for 48 hours and then as needed. Diet and Activity as tolerated. If questions or concerns contact your physician Or seek help at emergency department. HARLEEN FUENTES MD Feb 03, 2022 07:16
[2022-02-03] MEDS ORDERED: PHENYLEPHRINE 100 MCG/ML 10 ML (ANESTHESIA) SYR ONE (07:41)
--- NOTE | 2022-02-03 07:54 | Diagnostic Imaging Report ---
INDICATION: Right renal stone. TECHNIQUE: 2 supine radiograph of the abdomen 6:44 AM CORRELATION STUDY: None FINDINGS: Moderate amount of overlying bowel gas and stool obscures detail. 14 mm calcification projects just the right of L4-L5 could potentially reflect a ureteral stone. Definitive calcification of the renal silhouettes not otherwise suggested. IMPRESSION: 1. Calcification over the L4-L5 right paraspinal region could potentially reflect a ureteric calcification. Dictated by: Dictated on workstation # [id number]
[2022-02-03] MEDS ORDERED: morphine INJ 10 MG/ML 1ML (SYR OR VIAL) IVP ONE (08:30)
[2022-02-03] MEDS ORDERED: fentaNYL INJ 100 MCG/2 ML AMP IVP ONE (08:30)
[2022-02-03] MEDS ORDERED: MEPERIDINE (DEMEROL) INJ 50 MG/ML IVP ONE (08:30)
[2022-02-03] MEDS ORDERED: ONDANSETRON 4 MG/2 ML (SDV) Z0FRAN IVP PRN (08:30)
--- NOTE | 2022-02-03 08:31 | Anesthesia-General Post-Op ---
General Patient Condition Mental Status/LOC: Same as Preop Cardiovascular: Satisfactory Nausea/Vomiting: Absent Respiratory: Satisfactory Pain: Controlled Complications: Absent Post Op Complications Complications None Follow Up Care/Instructions Patient Instructions None needed. Anesthesia/Patient Condition Patient Condition Patient is doing well, no complaints, stable vital signs, no apparent adverse anesthesia problems. No complications reported per nursing. BOO LEDESMA CRNA Feb 03, 2022 08:31
--- NOTE | 2022-02-03 11:06 | OPERATIVE REPORT ---
DATE OF SERVICE: 02/03/2022 PREOPERATIVE DIAGNOSIS: Right proximal ureteral stone. POSTOPERATIVE DIAGNOSIS: Right proximal ureteral stone. OPERATION PERFORMED: Cystoscopy, right ureteral stone manipulation, attempted insertion of stent and retrograde urogram. SURGEON: Florin Fuentes MD ANESTHESIA: General. COMPLICATIONS: None. DESCRIPTION OF PROCEDURE: Under satisfactory general anesthesia, the patient in lithotomy position, genitalia was prepped and draped in the usual sterile fashion. Cystoscope was introduced in the bladder. Anterior urethra was normal. The prostate was nonobstructing. The bladder neck was open. The bladder revealed some trabeculations. Ureteric orifices normal, clear efflux, very sluggish on the right side. Using the foroblique lens, I passed a whistle tip 5-German ureteral catheter guided fluoroscopically toward the stone. I was held about a centimeter or so distal to it. I injected contrast, which delineated quite acute curve not allowing the catheter to go. I tried to flush the stone back into the kidney, but no help. I tried to pass a spiral TIG catheter to manipulate the curve, no change. I tried a Glidewire and then a sensor wire, I was able to bypass the curve over the sensor guidewire, but was abutting against the stone, unable to pass it because of the size of it being 1.2 cm and probably impacted in the ureter, injected contrast to confirm the integrity of the system and no extravasation all the way, removed the wire, there was good emptying of the ureter distal to the curve. I emptied the bladder, removed the cystoscope. The patient tolerated the procedure and anesthesia well and was sent to recovery room in stable condition. PLAN: I explained to the in detail and she will be explain to her in [place] since he does not know [place] very well, but we will keep him off the aspirin. We will give him an appointment in the office on 02/23/2022 for possible ESWL on the . We would have done it today, but he was on aspirin and the ureter stone is proximal, so and they are aware that I will be gone the first 2 weeks in February, my office will also try to refer to [facility] urology group for an appointment earlier than that. I told the that if he develops any pain or any problem related to the stone mostly fever, sepsis to go to the emergency room and to be transferred or go directly to the emergency room at [facility] depending on the situation to be taken care of. The patient will be then amenable to possible flexible ureteroscopy, which we do not have here and/or ESWL. She fully understood, I made diagram for her, noted down as well as instruction printed. CC: [facility] -requested, unable to deliver. Job ID: [id number] DocumentID: [id number] Dictated Date: 02/03/2022 08:26:21 Matrix Inspector Date: 02/03/2022 11:04:34 Dictated By: FLORIN FUENTES MD
== END 2022-02-03 10:40 | disposition home or self-care (01) ==
LOC: SDC 06:14
PROVIDERS: ATTEND Urology
DX: N20.1 Calculus of ureter (principal); E11.9 Type 2 diabetes mellitus without complications; F10.21 Alcohol dependence, in remission
CPT/HCPCS: 52000; 74018; 76000; 82947; 87081; C1769; C2625

== ENCOUNTER 2022-02-17 05:43 | Outpatient (CLI) | payer MEDICARE ==
[~2022-02-17] VITALS: Ht 167 cm; Wt 78.0 kg
[2022-02-24] MEDS ORDERED: NITR-65 PO (11:30)
[2022-02-24] MEDS ORDERED: TMSL.4C PO (11:30)
[2022-02-24] MEDS ORDERED: KETO10TA PO (11:30)
== END 2022-02-23 16:49 | disposition home or self-care (01) ==
LOC: PREOP 05:43
PROVIDERS: ATTEND Urology
DX: Z01.818 Encounter for other preprocedural examination (principal)

== ENCOUNTER 2022-02-24 06:23 | Day surgery (SDC) | payer MEDICARE ==
[2022-02-24] VITALS (10 sets, daily range): BP systolic 112–173; BP diastolic 75–118
[~2022-02-24] VITALS: Ht 167 cm; Wt 78.0 kg
[2022-02-24] MEDS ORDERED: cefTRIAXone 1 GM PRE-MIX 50 ML IV ONE (06:45)
--- NOTE | 2022-02-24 06:57 | Progress Note-Pre Operative ---
Pre-Operative Progress Note Date of Available H&P: Feb 24, 2022 Date H&P Reviewed: Feb 24, 2022 Time H&P Reviewed: 06:56 Changes from last HP NONE Pre-Operative Diagnosis: RT PROXIMAL URETERAL STONE HARLEEN FUENTES MD Feb 24, 2022 06:57
[2022-02-24] MEDS: LACTATED RINGERS 1,000 ML IV PRN ×2 (07:24→09:52)
--- NOTE | 2022-02-24 08:04 | Progress Note-Post Operative ---
Post-Operative Progess Note Surgeon (s)/Director Home Health (s) Surgeon HARLEEN FUENTES MD Director Home Health: NONE Pre-Operative Diagnosis RIGHT UPPER URETERAL STONE Post-Operative Diagnosis SAME Procedure & Operative Findings Date of Procedure 02/24/22 Procedure Performed/Findings RT ESWL Anesthesia Type GENERAL Estimated Blood Loss Estimated blood loss (mL): NONE Specimens/Packing Specimens Removed NONE Packing: NONE HARLEEN FUENTES MD Feb 24, 2022 08:04
--- NOTE | 2022-02-24 08:06 | Discharge Inst-Urology ---
Discharge Inst-Urology Reconcile Patient Problems Problems Reviewed?: Yes Final Diagnosis RT PROXIMAL URETERAL STONE Patient Instructions/Follow Up Plan/Assessment/Instructions Please make appointment to been seen in office Friday 03/09, KUB prior to it. KUB on way home Stay off ASA Post ESWL instructions Increase oral fluids for 48 hours and then as needed. Diet and Activity as tolerated. If questions or concerns contact your physician Or seek help at emergency department. HARLEEN FUENTES MD Feb 24, 2022 08:06
--- NOTE | 2022-02-24 08:12 | Diagnostic Imaging Report ---
ABDOMEN/KUB 1VIEW INDICATION: Status post lithotripsy. Right-sided urinary tract calculi COMPARISON: 02/03/2022 TECHNIQUE: AP view of the abdomen FINDINGS: There remains an 11 mm paraspinal calcification on the right at L5. No new abnormal soft tissue calcification. Nonobstructive bowel gas pattern. No free intraperitoneal air on supine imaging. Stable regional skeleton. IMPRESSION: Stable 1 cm calcification in the right paraspinal position at the L5 level. Dictated by: Dictated on workstation # [id number]
[2022-02-24] MEDS ORDERED: proPOfol 200 MG/20 ML (DIPRIVAN) VIAL IV ONE (08:15)
[2022-02-24] MEDS ORDERED: ONDANSETRON 4 MG/2 ML (SDV) Z0FRAN ONE (08:15)
[2022-02-24] MEDS ORDERED: SEVOFLURANE (ULTANE) 15 ML INHAL SOLN ONE (08:15)
[2022-02-24] MEDS ORDERED: fentaNYL INJ 100 MCG/2 ML AMP ONE ×2 (08:15→12:31)
[2022-02-24] MEDS ORDERED: LIDOCAINE PF 2% 5 ML (XYLOCAINE) VIAL ONE (08:15)
[2022-02-24] MEDS ORDERED: MIDAZOLAM 2 MG/2 ML (VERSED) VIAL ONE (08:15)
[2022-02-24] MEDS ORDERED: KETOROLAC 30 MG/ML VIAL ONE (08:40)
[2022-02-24] MEDS ORDERED: FUROSEMIDE 40 MG/4 ML INJ (LASIX) ONE (08:40)
[2022-02-24] MEDS ORDERED: HYDROmorphone 2 MG/ML VIAL (DILAUDID) IV ONE (10:45)
[2022-02-24] MEDS ORDERED: ONDANSETRON 4 MG/2 ML (SDV) Z0FRAN IVP PRN (10:45)
[2022-02-24] MEDS ORDERED: TMSL.4C PO (11:30)
[2022-02-24] MEDS ORDERED: NITR-65 PO (11:30)
[2022-02-24] MEDS ORDERED: KETO10TA PO (11:30)
--- NOTE | 2022-02-24 11:36 | Anesthesia-General Post-Op ---
General Patient Condition Mental Status/LOC: Same as Preop Cardiovascular: Satisfactory Nausea/Vomiting: Absent Respiratory: Satisfactory Pain: Controlled Complications: Absent Post Op Complications Complications None Follow Up Care/Instructions Patient Instructions None needed. Anesthesia/Patient Condition Patient Condition Patient is doing well, no complaints, stable vital signs, no apparent adverse anesthesia problems. No complications reported per nursing. D/C home per [facility] Criteria: Yes GABRIELLE VALERO CRNA Feb 24, 2022 11:36
[2022-02-24] MEDS ORDERED: HYDROcodone/APAP 7.5 MG/325 MG (LORTAB, LORCET PLUS) TABLET PO ONE ×2 (11:52→12:00)
[2022-02-24] MEDS ORDERED: PHENAZOPYRIDINE 100 MG (PYRIDIUM) TABLET PO ONE (12:00)
[2022-02-24] MEDS ORDERED: fentaNYL INJ 100 MCG/2 ML AMP IVP ONE (12:30)
--- NOTE | 2022-02-24 13:45 | Diagnostic Imaging Report ---
HISTORY: Status post lithotripsy. COMPARISON: 02/24/2022. TECHNIQUE: Frontal view of the abdomen. FINDINGS: There does appear to be calcification in the right paraspinal region measuring about 1 cm in size. This is unchanged in position at the L5 level. There may be mildly increased fragmentation. Sacroiliac joints are patent. No distended loops of bowel are seen. IMPRESSION: 1. 1 cm calcification appears unchanged in position at the right L5 paraspinal region. There may be mildly increased fragmentation. Dictated by: Dictated on workstation # [id number]
--- NOTE | 2022-02-24 15:13 | OPERATIVE REPORT ---
DATE OF SERVICE: 02/24/2022 PREOPERATIVE DIAGNOSIS: Right proximal ureteral stone. POSTOPERATIVE DIAGNOSIS: Right proximal ureteral stone. OPERATION PERFORMED: Right ESWL. SURGEON: Florin Fuentes MD ANESTHESIA: General. COMPLICATIONS: None. DESCRIPTION OF PROCEDURE: Under satisfactory general anesthesia, the patient in supine position on the ESWL table, the right proximal ureteral stone was localized. Shocks were delivered at kV of 6. Total of 3000 shocks completely fragmented the stone with good results. The patient received 30 mg of Toradol and 40 mg of Lasix IV at the end of the procedure. He tolerated the procedure and anesthesia well and was sent to recovery room in stable condition. CC: Dr. Gomez - requested, unable to deliver. Job ID: [id number] DocumentID: [id number] Dictated Date: 02/24/2022 10:21:47 Utility Service Worker Date: 02/24/2022 15:12:13 Dictated By: FLORIN FUENTES MD
== END 2022-02-24 14:30 | disposition home or self-care (01) ==
LOC: SDC 06:23
PROVIDERS: ATTEND Urology
DX: N20.1 Calculus of ureter (principal); E11.9 Type 2 diabetes mellitus without complications; I10 Essential (primary) hypertension; N40.0 Benign prostatic hyperplasia without lower urinary tract symptoms; Z79.84 Long term (current) use of oral hypoglycemic drugs; Z79.899 Other long term (current) drug therapy; Z79.4 Long term (current) use of insulin; Z79.85 Long-term (current) use of injectable non-insulin antidiabetic drugs; Z28.310 Unvaccinated for COVID-19
CPT/HCPCS: 74018; 82947; 87081

== ENCOUNTER → 2022-03-09 | Outpatient (CLI) | payer MEDICARE ==
[~2022-03-09] MED LIST changes: +KETO10TA PO; +NITR-65 PO
--- NOTE | 2022-03-09 16:50 | Diagnostic Imaging Report ---
INDICATION: Abdominal pain, history of lithotripsy. TECHNIQUE/COMPARISON: An abdominal film was obtained at 3:57 PM and compared to 02/24/2022. FINDINGS: The abdominal bowel gas pattern is unremarkable. There is no overt obstruction or ileus. There are small ill-defined calcifications overlying the right flank which may be within the right kidney. There are some calcifications to the right of midline at L4-L5 which are near the location of the right ureter. Consider CT if clinically warranted. There are no significant calcifications overlying the left flank or pelvis. IMPRESSION: Unremarkable bowel gas pattern. There are small calcifications overlying the expected location of the lower pole of the right kidney. There are also small calcifications overlying the paraspinous region at L4-L5 on the right side which are near the expected location of the ureter. Consider CT if clinically warranted. Dictated by: Dictated on workstation # [id number]
== END ==
LOC: RAD 15:33
PROVIDERS: ATTEND Urology
DX: N28.89 Other specified disorders of kidney and ureter (principal)
CPT/HCPCS: 74018